=== PATIENT | female | born 1985 | race Caucasian/White ===

== ENCOUNTER 2017-07-18 21:56 | Emergency (ER) | payer OTHER ==
[~2017-07-18] VITALS: Ht 160 cm; Wt 70.3 kg
[2017-07-18] MEDS ORDERED: Hair, Skin & N1 EACH PO (22:04)
== END 2017-07-19 00:22 | disposition left against medical advice (07) ==
LOC: ER 21:56
DX: Z53.21 Procedure and treatment not carried out due to patient leaving prior to being seen by health care provider (principal)

== ENCOUNTER → 2017-09-13 | Outpatient (CLI) | payer OTHER ==
[~2017-09-13] MED LIST: Hair, Skin & N1 EACH PO
[2017-09-14 21:08] LABS: CHLAMYDIA TRACHOMATIS, NAA Negative (Negative); NEISSERIA GONORRHOEAE, NAA Negative (Negative)
== END ==
LOC: LAB 12:06 → LAB SHORT 12:06
PROVIDERS: Registered Nurse Community Health
DX: Z12.4 Encounter for screening for malignant neoplasm of cervix (principal); Z11.3 Encounter for screening for infections with a predominantly sexual mode of transmission
CPT/HCPCS: 87491; 87591; 87624; G0123

== ENCOUNTER 2018-06-06 06:11 | Day surgery (SDC) | payer OTHER ==
[2018-06-04 14:07] LABS: BASOPHILS ABSOLUTE AUTO 0.03 K/mm3 (0.00-0.23); BASOPHILS PERCENT AUTO 0 % (0-2); EOSINOPHILS ABSOLUTE AUTO 0.06 K/mm3 (0.00-0.68); EOSINOPHILS PERCENT AUTO 1 % (0-6); Hematocrit 41.7 % (33.0-51.0); IMMATURE GRAN ABSOLUTE AUTO 0.03 K/mm3 (0.00-0.10); IMMATURE GRAN PERCENT AUTO 0 % (0-1); LYMPHOCYTES ABSOLUTE AUTO 2.32 K/mm3 (0.84-5.20); LYMPHOCYTES PERCENT AUTO 30 % (21-46); MONOCYTES ABSOLUTE AUTO 0.39 K/mm3 (0.16-1.47); MONOCYTES PERCENT AUTO 5 % (4-13); Mean Corpuscular HGB 30.4 pg (26.0-34.0); Mean Corpuscular HGB Conc 33.6 g/dL (31.5-36.5); Mean Corpuscular Volume 91 fL (80-100); Mean Platelet Volume 9.4 fL (9.1-12.4); NEUTROPHILS PERCENT AUTO 63 % (41-73); Platelet Count 320 K/mm3 (150-400); RDW Coefficient Variation 11.8 % (11.7-14.2); RDW Standard Deviation 38.5 fL (35.1-46.3); Red Blood Cell Count 4.61 M/mm3 (3.80-5.20); White Blood Cell Count 7.63 K/mm3 (4.00-11.30)
[~2018-06-06] VITALS: Ht 160 cm; Wt 68.5 kg
[~2018-06-06 06:11] MED LIST changes: +ACID REDUCER 1150 MG; +BACL10; +ESCI20
--- NOTE | 2018-06-06 06:31 | NUR ---
History, Chart, Medications and Allergies reviewed before start of procedure. Patient confirms NPO status and agrees with scheduled surgery.
--- NOTE | 2018-06-06 19:34 | NUR ---
SHIFT SUMMARY PT HAS DONE VERY WELL TODAY POST OP. AFTER AMBULATING, PT REQUESTS TANG D/C'D. DISCUSSED THIS WITH SURGEON, CLYDE D/C'Christine. PT VOIDING WELL. PAIN CONTROLLED. TOLERATING LIGHT DIET. DRINKING FLUIDS WELL.
[2018-06-07 04:14] LABS: BASOPHILS ABSOLUTE AUTO 0.01 K/mm3 (0.00-0.23); BASOPHILS PERCENT AUTO 0 % (0-2); EOSINOPHILS ABSOLUTE AUTO 0.01 K/mm3 (0.00-0.68); EOSINOPHILS PERCENT AUTO 0 % (0-6); IMMATURE GRAN ABSOLUTE AUTO 0.03 K/mm3 (0.00-0.10); IMMATURE GRAN PERCENT AUTO 0 % (0-1); LYMPHOCYTES PERCENT AUTO 22 % (21-46); MONOCYTES ABSOLUTE AUTO 1.07 K/mm3 (0.16-1.47); MONOCYTES PERCENT AUTO 10 % (4-13); Mean Corpuscular HGB 30.8 pg (26.0-34.0); Mean Corpuscular HGB Conc 33.3 g/dL (31.5-36.5); Mean Corpuscular Volume 93 fL (80-100); Mean Platelet Volume 9.5 fL (9.1-12.4); NEUTROPHILS ABSOLUTE AUTO 7.52 K/mm3 (1.96-9.15); NEUTROPHILS PERCENT AUTO 68 % (41-73); Platelet Count 293 K/mm3 (150-400); RDW Standard Deviation 40.2 fL (35.1-46.3); Red Blood Cell Count 3.89 M/mm3 (3.80-5.20); White Blood Cell Count 11.04 K/mm3 (4.00-11.30)
--- NOTE | 2018-06-07 07:26 | NUR ---
SUMMARY: POD [address] CORTEZ. VSS, AFEBRILE, VOIDING CLEAR, YELLOW URINE AND TOLERATING PO INTAKE WELL. PAIN WELL CONTROLLED WITH 2 TABS NORCO X2 THIS SHIFT AND IV TORDAL. MEDICATED PRN SIMETHICONE BUT NOT YET PASSING GAS. ANTICIPATE DC HOME LATER THIS DAY.
--- NOTE | 2018-06-07 08:59 | NUR ---
06/07/18 0859 Stephania Lee VERIFICATIONS: EDIT CHART.
[2018-06-07] MEDS ORDERED: Norco 7.5-3251 EACH PO (09:28)
[2018-06-07] MEDS ORDERED: IBUP800 PO (09:28)
[2018-06-07] MEDS ORDERED: DOCU100 PO (09:28)
[2018-06-07] MEDS ORDERED: PROM25 PO (09:29)
[2018-06-07] MEDS ORDERED: Milk Of Ma400 MG/5 M PO (09:29)
[2018-06-07] MEDS ORDERED: SIME80CH PO (09:30)
--- NOTE | 2018-06-07 10:40 | NUR ---
DISCHARGE PT AMBULATING EASILY, TOLERATING DIET, VOIDING, PASSING GAS. DISCUSSED BOWEL CARE, PAIN MANAGMENT, WOUND CARE WITH PT. SCRIPT GIVEN. ESCORTED PT OUT VIA W/C. AT SIDE.
== END 2018-06-07 10:38 | disposition home or self-care (01) ==
LOC: ORSCMMR 06:11 → ORD 07:30 → SURS 10:44 → ORSCMMR 06-07 10:38
PROVIDERS: Obstetrics & Gynecology
PROC: 0UT7FZZ Resection of Bilateral Fallopian Tubes, Via Natural or Artificial Opening With Percutaneous Endoscopic Assistance (ICD-10-PCS; principal; 2018-06-06 07:30)
PROC: 0UT9FZZ Resection of Uterus, Via Natural or Artificial Opening With Percutaneous Endoscopic Assistance (ICD-10-PCS; principal; 2018-06-06 07:30)
DX: N92.1 Excessive and frequent menstruation with irregular cycle (principal); N94.6 Dysmenorrhea, unspecified; N80.9 Endometriosis, unspecified; R10.2 Pelvic and perineal pain; J45.909 Unspecified asthma, uncomplicated
CPT/HCPCS: 36415; 85025; 86850; 86900; 86901; 88307; A9270-GY; J0690; J1100; J1885; J2250; J2405; J2704; J3010; J7120

== ENCOUNTER 2018-10-12 09:49 | Day surgery (SDC) | payer OTHER ==
[~2018-10-12] VITALS: Ht 160 cm; Wt 63.4 kg
[~2018-10-12 09:49] MED LIST changes: +DOCU100 PO; +IBUP800 PO; +Milk Of Ma400 MG/5 M PO; +Norco 7.5-3251 EACH PO; +PROM25 PO; +Roxicodone5 MG PO; +SIME80CH PO; +Zofran4 MG PO
--- NOTE | 2018-10-12 10:02 | NUR ---
History, Chart, Medications and Allergies reviewed before start of procedure. Patient states colon prep results clear. Patient States Post-Procedure ride home has been arranged.
--- NOTE | 2018-10-12 11:55 | NUR ---
Patient up to Ambulate independently. Gait steady. Discharge instructions reviewed with patient. Patient verbalizes understanding. Copy given to patient to take home. Patient States Post-Procedure ride home has been arranged. Discharged via wheelchair to private car for ride home. PT MALACHI RETURNED.
--- NOTE | 2018-10-12 11:56 | NUR ---
CALLED ZANTAC 300MG INTO [facility] IN [place].
--- NOTE | 2018-10-13 06:57 | NUR ---
10/13/18 0657 Vandana Smith INTO STEP TIME CORRECTION FOR PURPOSES OF VERIFICATION.
== END 2018-10-12 22:38 | disposition home or self-care (01) ==
LOC: ORSCMMR 09:49 → ORD 10:45 → ORSCMMR 22:38
PROVIDERS: Internal Medicine Gastroenterology
PROC: 0DBB8ZX Excision of Ileum, Via Natural or Artificial Opening Endoscopic, Diagnostic (ICD-10-PCS; principal; 2018-10-12 10:45)
PROC: 0DB68ZX Excision of Stomach, Via Natural or Artificial Opening Endoscopic, Diagnostic (ICD-10-PCS; principal; 2018-10-12 10:45)
PROC: 0DB48ZX Excision of Esophagogastric Junction, Via Natural or Artificial Opening Endoscopic, Diagnostic (ICD-10-PCS; principal; 2018-10-12 10:45)
PROC: 0DBN8ZX Excision of Sigmoid Colon, Via Natural or Artificial Opening Endoscopic, Diagnostic (ICD-10-PCS; principal; 2018-10-12 10:45)
PROC: 0DBK8ZX Excision of Ascending Colon, Via Natural or Artificial Opening Endoscopic, Diagnostic (ICD-10-PCS; principal; 2018-10-12 10:45)
PROC: 0DB98ZX Excision of Duodenum, Via Natural or Artificial Opening Endoscopic, Diagnostic (ICD-10-PCS; principal; 2018-10-12 10:45)
PROC: 0DBL8ZX Excision of Transverse Colon, Via Natural or Artificial Opening Endoscopic, Diagnostic (ICD-10-PCS; principal; 2018-10-12 10:45)
DX: R19.7 Diarrhea, unspecified (principal); K29.70 Gastritis, unspecified, without bleeding; K21.0 Gastro-esophageal reflux disease with esophagitis; R10.9 Unspecified abdominal pain
CPT/HCPCS: 88305; 88342; J2704; J7120

== ENCOUNTER 2019-11-20 10:33 | Day surgery (SDC) | payer OTHER ==
[~2019-11-20] VITALS: Ht 160 cm; Wt 83.1 kg
[~2019-11-20 10:33] MED LIST changes: +BUSP5 PO; +DICY20 PO; +ESTRADIOL0.5 MG PO; +PROP10 PO; +TRAZ100 PO
[2019-11-20] MEDS ORDERED: PROG100 (10:57)
== END 2019-11-20 12:31 | disposition home or self-care (01) ==
LOC: ORSCSDS 10:33
PROVIDERS: Student in an Organized Health Care Education/Training Program
PROC: 0DB98ZX Excision of Duodenum, Via Natural or Artificial Opening Endoscopic, Diagnostic (ICD-10-PCS; principal; 2019-11-20 11:45)
PROC: 0DB58ZX Excision of Esophagus, Via Natural or Artificial Opening Endoscopic, Diagnostic (ICD-10-PCS; principal; 2019-11-20 11:45)
PROC: 0DBE8ZX Excision of Large Intestine, Via Natural or Artificial Opening Endoscopic, Diagnostic (ICD-10-PCS; principal; 2019-11-20 11:45)
PROC: 0DB78ZX Excision of Stomach, Pylorus, Via Natural or Artificial Opening Endoscopic, Diagnostic (ICD-10-PCS; principal; 2019-11-20 11:45)
DX: R10.9 Unspecified abdominal pain (principal); R11.0 Nausea; K21.9 Gastro-esophageal reflux disease without esophagitis; K44.9 Diaphragmatic hernia without obstruction or gangrene; K22.2 Esophageal obstruction; K57.30 Diverticulosis of large intestine without perforation or abscess without bleeding; J45.909 Unspecified asthma, uncomplicated; Z87.891 Personal history of nicotine dependence; Z79.899 Other long term (current) drug therapy
CPT/HCPCS: 88305; 88342; J2250; J2704; J7120

== ENCOUNTER → 2020-06-19 | Outpatient (CLI) | payer OTHER ==
[~2020-06-19] MED LIST changes: +PROG100
== END | disposition home or self-care (01) ==
LOC: LAB SHORT 18:07 → LAB EV 18:07
DX: N89.8 Other specified noninflammatory disorders of vagina (principal)
CPT/HCPCS: 87070; 87205

== ENCOUNTER 2021-05-01 06:30 | Day surgery (SDC) | payer OTHER ==
[2021-04-21 12:29] LABS: BASOPHILS ABSOLUTE AUTO 0.05 K/mm3 (0.00-0.23); BASOPHILS PERCENT AUTO 1 % (0-2); EOSINOPHILS ABSOLUTE AUTO 0.07 K/mm3 (0.00-0.68); EOSINOPHILS PERCENT AUTO 1 % (0-6); Hematocrit 42.4 % (33.0-51.0); Hemoglobin 14.1 g/dL (11.5-16.0); IMMATURE GRAN ABSOLUTE AUTO 0.04 K/mm3 (0.00-0.10); IMMATURE GRAN PERCENT AUTO 0 % (0-1); LYMPHOCYTES ABSOLUTE AUTO 2.65 K/mm3 (0.84-5.20); LYMPHOCYTES PERCENT AUTO 27 % (21-46); MONOCYTES ABSOLUTE AUTO 0.48 K/mm3 (0.16-1.47); MONOCYTES PERCENT AUTO 5 % (4-13); Mean Corpuscular HGB 30.3 pg (26.0-34.0); Mean Corpuscular HGB Conc 33.3 g/dL (31.5-36.5); Mean Corpuscular Volume 91 fL (80-100); Mean Platelet Volume 9.3 fL (9.1-12.4); NEUTROPHILS ABSOLUTE AUTO 6.59 K/mm3 (1.96-9.15); NEUTROPHILS PERCENT AUTO 67 % (41-73); Platelet Count 340 K/mm3 (150-400); RDW Coefficient Variation 12.1 % (11.7-14.2); RDW Standard Deviation 39.8 fL (35.1-46.3); Red Blood Cell Count 4.66 M/mm3 (3.80-5.20); White Blood Cell Count 9.88 K/mm3 (4.00-11.30)
[~2021-05-01] VITALS: Ht 160 cm; Wt 73.8 kg
--- NOTE | 2021-05-01 07:08 | NUR ---
History, Chart, Medications and Allergies reviewed before start of procedure. Lungs clear T/O to Auscultation. Patient confirms NPO status and agrees with scheduled surgery. Pre-Op teaching done. Pt verbalizes understanding. Patient States Post-Procedure ride home has been arranged. Patient reports completing Chlorhexadine shower X2 prior to admission to hospital.
--- NOTE | 2021-05-01 10:28 | NUR ---
PT GIVEN REGLAN ORDERED FOR STATED NAUSEA. VSS
--- NOTE | 2021-05-01 10:31 | NUR ---
PT RESTING WITH EYES CLOSED. TANG CATHETER REMOVED, 400 ML CLEAR, YELLOW. PT TOLERATED WELL.
--- NOTE | 2021-05-01 10:49 | NUR ---
PT STATES CONTINUED PAIN IN ABDOMEN, SHAKES HER HEAD NO WHEN ASKED IF THE FIRST DOSE OF DILUADID HELPED THE PAIN. RATING PAIN AT "7/10." NAUSEA HAS RESOLVED.
[2021-05-05] MEDS ORDERED: Diflucan150 MG PO (15:04)
[2021-05-05] MEDS ORDERED: CORTISONE60 GM TOP (15:04)
--- NOTE | 2021-05-07 11:02 | NUR ---
05/07/21 1102 Stepahnia Lee VERIFICATIONS: EDIT CHART.
== END 2021-05-01 22:39 | disposition home or self-care (01) ==
LOC: ORSCMMR 06:30
PROVIDERS: Obstetrics & Gynecology
PROC: 0UBF4ZX Excision of Cul-de-sac, Percutaneous Endoscopic Approach, Diagnostic (ICD-10-PCS; principal; 2021-05-01 07:30)
PROC: 0UT04ZZ Resection of Right Ovary, Percutaneous Endoscopic Approach (ICD-10-PCS; principal; 2021-05-01 07:30)
DX: N80.3 Endometriosis of pelvic peritoneum (principal); N94.10 Unspecified dyspareunia; R10.2 Pelvic and perineal pain; D27.0 Benign neoplasm of right ovary; N83.11 Corpus luteum cyst of right ovary; K66.0 Peritoneal adhesions (postprocedural) (postinfection); Z79.899 Other long term (current) drug therapy
CPT/HCPCS: 36415; 85025; 88305; A9270; J0690; J1100; J1170; J1885; J2250; J2405; J2704; J2765; J3010; J7120

== ENCOUNTER → 2021-05-22 | Outpatient (CLI) | payer OTHER ==
[~2021-05-22] MED LIST changes: +CORTISONE60 GM TOP; +Diflucan150 MG PO
== END | disposition home or self-care (01) ==
LOC: LAB SHORT 13:27 → LAB 13:27
DX: Z48.816 Encounter for surgical aftercare following surgery on the genitourinary system (principal); Z90.721 Acquired absence of ovaries, unilateral
CPT/HCPCS: 87086

== ENCOUNTER 2022-12-17 11:46 | Emergency (ER) | payer OTHER ==
[~2022-12-17] VITALS: Ht 157.5 cm; Wt 80.3 kg
[2022-12-17 11:53] VITALS: BP 148/115
[2022-12-17] MEDS ORDERED: Cymbalta20 MG PO (12:56)
[2022-12-17] MEDS ORDERED: THERA-D2000 UNIT PO (12:56)
[2022-12-17] MEDS ORDERED: TOPI50 PO (12:56)
== END 2022-12-17 14:04 | disposition home or self-care (01) ==
LOC: ER 11:46
DX: S09.90XA Unspecified injury of head, initial encounter (principal); W22.09XA Striking against other stationary object, initial encounter; Z88.5 Allergy status to narcotic agent; Z91.040 Latex allergy status; Z91.09 Other allergy status, other than to drugs and biological substances; Z79.899 Other long term (current) drug therapy; J45.909 Unspecified asthma, uncomplicated; G43.909 Migraine, unspecified, not intractable, without status migrainosus
CPT/HCPCS: 70450; 99283-25

== ENCOUNTER → 2023-02-11 | Outpatient (CLI) | payer OTHER ==
[~2023-02-11] MED LIST changes: +Cymbalta20 MG PO; +THERA-D2000 UNIT PO; +TOPI50 PO
[2023-02-20 12:51] LABS: HPV GENOTYPE 16 Not Detected; HPV GENOTYPE 18 Not Detected; HPV HIGH RISK Not Detected; HPV SOURCE Cervical
== END ==
LOC: LAB SHORT 12:15 → LAB 12:15
PROVIDERS: Family Medicine
DX: Z01.419 Encounter for gynecological examination (general) (routine) without abnormal findings (principal)
CPT/HCPCS: 87624; G0123

== ENCOUNTER → 2023-10-25 | Outpatient (CLI) | payer OTHER ==
[2023-10-26 15:29] LABS: Bacterial Vaginosis PCR Negative (NEGATIVE)
[2023-11-09 12:30] LABS: Candida Group, PCR DETECTED (NOT DETECT); Candida glabrata-krusei, PCR NOT DETECTED (NOT DETECT)
== END ==
LOC: LAB SHORT 12:37 → LAB 12:37
PROVIDERS: Nurse Practitioner Family
DX: N89.8 Other specified noninflammatory disorders of vagina (principal)
CPT/HCPCS: 87481; 87661; 87801

== ENCOUNTER 2024-04-06 10:10 | Day surgery (SDC) | payer OTHER ==
[2024-04-06] VITALS (12 sets, daily range): BP systolic 101–142; BP diastolic 62–95
[~2024-04-06] VITALS: Ht 157.5 cm; Wt 79.0 kg
[~2024-04-06 10:10] MED LIST changes: -BUSP5 PO; +BUSPIRONE HCL7.5 M1 PO; +CeFAZolin Sodium 2,000 MG in NS 100 ML IV SCH; +ESGIC 50-325-41 EACH PO; +ESTRADIOL1 MG PO; +Lactated Ringer's 1,000 ML IV SCH; +Maxalt Mlt10 MG SL; +NAPR500 PO; +ONDA4 PO; +PROG100 PO; +RIZATRIPTAN10 M3 PO
[2024-04-06] MEDS ORDERED: CeFAZolin Sodium 2,000 MG VIAL ONE (10:25)
--- NOTE | 2024-04-06 11:14 | NUR ---
Ambulatory in Day Surgery. History, Chart, Medications and Allergies reviewed before start of procedure. Lungs clear T/O to Auscultation. Patient confirms NPO status and agrees with scheduled surgery. Pre-Op teaching done. Pt verbalizes understanding. Patient States Post-Procedure ride home has been arranged. PT [facility].
[2024-04-06] MEDS ORDERED: propofoL 150 ML IV ONE (11:19)
[2024-04-06] MEDS ORDERED: Ropivacaine 0.5% HCL/PF 5 MG/ML 30ML Vial ONE (11:19)
[2024-04-06] MEDS ORDERED: Ketorolac Tromethamine 30mg Vial ONE (11:21)
[2024-04-06] MEDS ORDERED: FentaNYL Citrate 50 MCG/ML 2 ML Injection ONE ×3 (11:21→14:28)
[2024-04-06] MEDS ORDERED: Dexamethasone Sod Phos 10 MG/ML 1ML VIAL ONE ×2 (11:21→11:46)
[2024-04-06] MEDS ORDERED: EpiNEPhrine 1 MG/1 ML 1ML Vial ONE ×2 (11:21→11:46)
[2024-04-06] MEDS ORDERED: Sugammadex Sodium 200 MG/2ML SDV (100 MG/ML) ONE (11:21)
[2024-04-06] MEDS ORDERED: Rocuronium Bromide 10 MG/ML 5ML Injection IV ONE ×2 (11:21→13:13)
[2024-04-06] MEDS ORDERED: Metoclopramide HCl 5MG / ML 2ML Vial ONE (11:21)
[2024-04-06] MEDS ORDERED: Ondansetron HCl 2 MG / ML 2ML Vial ONE ×2 (11:21→12:18)
[2024-04-06] MEDS ORDERED: HYDROmorphone HCl/Pf 1MG SYR ONE ×2 (12:11→14:40)
[2024-04-06] MEDS ORDERED: propofoL 40 ML IV ONE (12:44)
--- NOTE | 2024-04-06 15:53 | NUR ---
LE 1545 PT UP GETTING DRESSED WITH STEADY GAIT. DR ESCOBEDO REVIEWED EKG RYHTYM STRIP. NO NEW ORDERS PT REMAINS ASYMPTOMATIC T/O RECOVERY. RECEIVED DIL 1MG, LYRIC PO FOOD AND FLUID. INCISIONS REMAINED CDI, ICE PACK. ALL MARLAGS RETURNED TO PT, RIDE HOME, VSS, W/C
== END 2024-04-07 23:00 | disposition home or self-care (01) ==
LOC: ORSCMMR 10:10 → ORD 10:10 → ORSCMMR 10:11 → ORD 11:30
PROVIDERS: Obstetrics & Gynecology
PROC: 0DNW4ZZ Release Peritoneum, Percutaneous Endoscopic Approach (ICD-10-PCS; principal; 2024-04-06 11:30)
PROC: 8E0W4CZ Robotic Assisted Procedure of Trunk Region, Percutaneous Endoscopic Approach (ICD-10-PCS; principal; 2024-04-06 11:30)
PROC: 0UB14ZZ Excision of Left Ovary, Percutaneous Endoscopic Approach (ICD-10-PCS; principal; 2024-04-06 11:30)
DX: N80.9 Endometriosis, unspecified (principal); R10.2 Pelvic and perineal pain; N94.10 Unspecified dyspareunia; J45.909 Unspecified asthma, uncomplicated; F41.9 Anxiety disorder, unspecified; E66.9 Obesity, unspecified; Z68.32 Body mass index [BMI] 32.0-32.9, adult; Z79.899 Other long term (current) drug therapy; Z87.891 Personal history of nicotine dependence
CPT/HCPCS: 88305; J0171; J0690; J1100; J1171; J1885; J2405; J2704; J2765; J2795; J3010; J7120

== ENCOUNTER 2024-12-07 19:32 | Emergency (ER) | payer OTHER ==
[~2024-12-07] VITALS: Ht 157.5 cm; Wt 80.7 kg
[~2024-12-07 19:32] MED LIST changes: -CeFAZolin Sodium 2,000 MG in NS 100 ML IV SCH; -Lactated Ringer's 1,000 ML IV SCH
[2024-12-07] MEDS ORDERED: Dexamethasone Sod Phos 10 MG/ML 1ML VIAL PO ONE (20:25)
[2024-12-07] MEDS ORDERED: Pantoprazole Sodium 40 MG Injection IV ONE (20:25)
[2024-12-07] MEDS ORDERED: Ondansetron HCl 2 MG / ML 2ML Vial IV ONE (20:30)
[2024-12-07] MEDS ORDERED: NS 1,000 ML IV SCH (20:30)
[2024-12-07 20:36] LABS: Influenza A, PCR NEGATIVE (NEGATIVE); Influenza B, PCR NEGATIVE (NEGATIVE); Resp Syncytial Virus, PCR NEGATIVE (NEGATIVE); SARS-Cov-2 (COVID-19) PCR, MMC NEGATIVE (NEGATIVE)
[2024-12-07 20:39] LABS: Alanine Aminotransfer (ALT/SGP 49.0 U/L (12-78); Albumin, Blood 3.8 g/dL (3.4-5.0); Albumin/Globulin Ratio 0.9 (0.8-1.8); Anion Gap 7.0 mmol/L (3-11); Aspartate Aminotrans (AST/SGOT 23.0 U/L (12-37); Bilirubin, Total 0.2 mg/dL (0.1-1.0); Blood Urea Nitrogen 11.0 mg/dL (8-24); CO2, Blood 21.0 mmol/L (21-32); Calcium, Blood 9.1 mg/dL (8.5-10.1); Chloride, Blood 114.0 mmol/L (98-108); Creatinine, Blood 0.66 mg/dL (0.40-1.00); Globulin, Blood 4.1 g/dL (2.2-4.0); Glucose, Blood 75.0 mg/dL (70-99); Potassium, Blood 4.0 mmol/L (3.5-5.5); Sodium, Blood 138.0 mmol/L (136-145); Total Protein, Blood 7.9 g/dL (6.4-8.2)
[2024-12-07 21:43] LABS: BASOPHILS ABSOLUTE AUTO 0.04 K/mm3 (0.00-0.23); BASOPHILS PERCENT AUTO 1 % (0-2); EOSINOPHILS ABSOLUTE AUTO 0.30 K/mm3 (0.00-0.68); EOSINOPHILS PERCENT AUTO 3 % (0-6); Hematocrit 38.4 % (33.0-51.0); Hemoglobin 13.1 g/dL (11.5-16.0); IMMATURE GRAN ABSOLUTE AUTO 0.02 K/mm3 (0.00-0.10); IMMATURE GRAN PERCENT AUTO 0 % (0-1); LYMPHOCYTES ABSOLUTE AUTO 3.49 K/mm3 (0.84-5.20); LYMPHOCYTES PERCENT AUTO 40 % (21-46); MONOCYTES ABSOLUTE AUTO 0.52 K/mm3 (0.16-1.47); MONOCYTES PERCENT AUTO 6 % (4-13); Mean Corpuscular HGB Conc 34.1 g/dL (31.5-36.5); Mean Corpuscular Volume 90 fL (80-100); NEUTROPHILS ABSOLUTE AUTO 4.40 K/mm3 (1.96-9.15); NEUTROPHILS PERCENT AUTO 50 % (41-73); NRBC ABSOLUTE 0.00 K/mm3 (0.00-0.02); NRBC Auto 0.0 /100 WBC (0.0-0.2); Platelet Count 347 K/mm3 (150-400); RDW Coefficient Variation 11.9 % (11.7-14.2); RDW Standard Deviation 39.4 fL (35.1-46.3)
[2024-12-07 22:59] VITALS: BP 134/96
== END 2024-12-07 23:03 | disposition home or self-care (01) ==
LOC: ER 19:32
PROVIDERS: Emergency Medicine
DX: J02.9 Acute pharyngitis, unspecified (principal); R07.2 Precordial pain; Z90.710 Acquired absence of both cervix and uterus
CPT/HCPCS: 71045; 80053; 84484; 85025; 87637; 93005; 93010; 96361; 96374; 96375; 99285-25; J1100; J2405; J2470; J7030